=== PATIENT | male | born 1965 | race Caucasian/White ===

== ENCOUNTER 2017-02-18 11:01 | Emergency (ER) | payer SELFPAY ==
[~2017-02-18] VITALS: Ht 182.9 cm; Wt 82.9 kg
[2017-02-18] MEDS ORDERED: SODIUM CHLORIDE 0.9% 1,000 ML IV ONE (11:42)
[2017-02-18] MEDS ORDERED: SODIUM CHLORIDE FLUSH 10ML SYR IVF ONE (12:00)
[2017-02-18] MEDS ORDERED: SODIUM CHLORIDE 0.9% 1,000ML IVBOLUS ONE (12:00)
[2017-02-18] MEDS ORDERED: ONDANSETRON 2MG/ML, 2ML IVPush ONE (12:00)
[2017-02-18 12:08] LABS: WHITE BLOOD COUNT 8.3 x10^3/uL (3.4-10)
[2017-02-18] MEDS ORDERED: ONDANSETRON 2MG/ML, 2ML ONE (12:18)
[2017-02-18 12:22] LABS: BLOOD UREA NITROGEN 8 mg/dL (7-18)
[2017-02-18 12:26] LABS: ASPARTATE AMINO TRANSFERASE 24 U/L (15-37)
[2017-02-18] MEDS ORDERED: PROMETHAZINE 25 MG/ML, 1ML IM ONE (14:30)
[2017-02-18] MEDS ORDERED: PROMETHAZINE 25 MG/ML, 1ML ONE (14:54)
[2017-02-18] MEDS ORDERED: OMNIPAQUE 350 MG/ML, 100ML BOTTLE ONE (14:58)
[2017-02-18 15:32] VITALS: BP 146/96
== END 2017-02-18 16:33 | disposition home or self-care (01) ==
LOC: ED 12:25
DX: K52.9 Noninfective gastroenteritis and colitis, unspecified (principal); K44.9 Diaphragmatic hernia without obstruction or gangrene
CPT/HCPCS: 36415; 71010; 74177; 80053; 81003; 83605; 83690; 85025; 93005; 96372; 96374; 99285; J2405; J2550; J7030; Q9967